=== PATIENT | female | born 1975 | race Caucasian/White ===

== ENCOUNTER 2023-02-05 08:04 | Emergency (ER) | payer BC, SELFPAY ==
[2023-02-05 08:05] VITALS: BP 126/81; TEMP 36.1; BMI 34.1
--- NOTE | 2023-02-05 08:24 | CT_ITS ---
STUDY: CT ABDOMEN AND PELVIS WITHOUT CONTRAST REASON FOR EXAM: Female, 48 years old. Right flank pain. Nausea. Difficulty with urination. RADIATION DOSAGE (If Supplied By Facility): CTDIvol = ( 15.94 ) mGy, DLP = ( 812.26 ) mGycm TECHNIQUE: Transaxial images were obtained from the dome of the diaphragm to the symphysis pubis without oral contrast, and without intravenous contrast. Sagittal and coronal images were reconstructed. Individualized dose optimization techniques were used for this CT. COMPARISON: None. FINDINGS: The visualized lung bases are unremarkable. The visualized portions of the heart are within normal limits. Normal liver. There are surgical clips in the gallbladder fossa consistent with a prior cholecystectomy. Normal spleen. Normal pancreas. Normal bilateral adrenal glands. Mild degree of right hydronephrosis and right hydroureter due to a 3.7 mm calculus at the right ureterovesical junction. Normal left kidney. Normal visualized stomach. Normal small intestine. Normal colon. The appendix is visualized and appears normal. Normal abdominal aorta. Normal inferior vena cava. Normal retroperitoneum. Normal urinary bladder. IUD is seen within the endometrium. Normal abdominal wall. There is a 1.1 cm x 0.9 cm well-defined rounded hypodensity in the posterior left side of the body of the L2 vertebrae. This may be a normal variant. CT/Abdomen/Pelvis without Cont IMPRESSION: 3.7 mm calculus at the right ureterovesical junction causing a mild degree of right hydronephrosis and hydroureter. IUD is seen within the endometrium. Electronically Signed: Roge Mario MD at 9:40 EDT ,
--- NOTE | 2023-02-05 08:25 | EX.ED.DYSGE1 ---
HPI History of Present Illness Chief Complaint: Flank Pain Informant: patient Onset/Context/Timing Onset: Today Context: Sudden Onset Timing: Continuous Quality: Sharp, cramping Location: Right lower abdomen and lower back Worsened by: Nothing Relieved by: Nothing Associated Symptoms Associated Symptoms: Nausea, vomiting, diarrhea Narrative Narrative: Patient presents with abdominal pain that began today. Patient states that began in the right lower quadrant and goes around to her right lower back. Patient describes it as sharp and cramping. Patient states it has been constant. Patient states nothing makes it better nothing makes it worse. Patient does admit to some nausea and vomiting today. Patient also admits to some loose diarrhea. Patient denies any dysuria or hematuria. Patient denies any frequency. Patient denies any prior history of kidney stones. Patient denies any hematemesis or coffee-ground emesis. Patient denies any melena or hematochezia. Prior similar symptoms: No PFSH PFSH Medical History (Updated 02/05/23 @ 10:[address] Bharat Armendariz DO) PCOS (polycystic ovarian syndrome) Medical History no medical history no medical history Home Medications oxycodone-acetaminophen 5 mg-325 mg tablet 1 - 2 tab PO Q4H PRN PRN Pain #30 tabs 04/04/16 [Rx Last Taken Unknown] ciprofloxacin HCl 500 mg tablet 500 mg PO BID #14 TABLETS 02/05/23 [Rx Last Taken Unknown] hydrocodone-acetaminophen 5-325mg 5mg-325mg 1 tab PO Q6H PRN PRN Pain 3 days #10 TABLETS 02/05/23 [Rx Last Taken Unknown] tamsulosin 0.4 mg capsule 0.4 mg PO DAILY #7 CAPSULES 02/05/23 [Rx Last Taken Unknown] Allergy/AdvReac Type Severity Reaction Status Date / Time Sulfa (Sulfonamide Allergy Rash Verified 02/05/23 08:08 Antibiotics) Surgical History no surgical history no surgical history Social History Smoking Status: Never smoker ROS ROS ED Constitutional Constitutional ED: Denies chills or fever(s) Eyes Eyes: Denies blurry vision or change in vision ENT ENT ED: Denies rhinorrhea or sore throat Cardiovascular Cardiovascular: Denies chest pain or palpitations Respiratory/Chest Respiratory/Chest: Denies cough or dyspnea Gastrointestinal Gastrointestinal: Reports abdominal pain, diarrhea, nausea and vomiting Genitourinary Genitourinary ED: Denies dysuria or hematuria Musculoskeletal Musculoskeletal: Reports back pain; Denies neck pain Integumentary Denies abscess or rash Neurologic Neurologic: Denies headache(s) or weakness Allergic/Immunologic Allergic/Immunologic ED: Denies mouth swelling or urticaria EXAM Physical Exam Const Vital Signs: 02/05/23 08:05 02/05/23 10:59 Temperature 97.0 F L Temperature Source Temporal Pulse Rate 89 Blood Pressure 126/81 H 119/76 Blood Pressure Mean 96 Oxygen Delivery Method Room Air Positive well nourished, well developed and obese General Appearance ED: well developed and NAD Nutritional Appearance: obese HEENT Reports moist mucous membranes Neck supple and no JVD Resp normal respiratory effort and clear to auscultation bilaterally Cardio regular rate, regular rhythm and no murmurs GI normal to inspection, nondistended, normoactive bowel sounds Palpation: soft and tender RLQ; Negative for guarding or rebound tenderness present Back/Spine no CVA tenderness Extremity normal to inspection General Extremety ED: Negative for edema or tenderness General Extremity: Negative for edema Neuro oriented x3, CN's II-XII intact bilaterally and no sensory deficits noted Sensorium / Orientation: alert Motor Exam: strength 5/5 throughout Psych mental status grossly normal Skin no rashes or lesions noted MDM MDM MDM Narrative Medical decision making narrative: Different but also includes ureteral calculus, pyelonephritis, appendicitis, gastroenteritis, mesenteric adenitis, ovarian cyst, ovarian torsion, and urinary tract infection. CBC will be obtained to assess for leukocytosis and anemia. Basic metabolic profile will be obtained to assess for electrolyte abnormality and renal function. Urinalysis will be obtained to assess for urinary tract infection and hematuria. CT scan of the abdomen pelvis will be obtained to assess for ureteral calculus, hydronephrosis, pyelonephritis, appendicitis, and ovarian cyst. Lab Data Attestation: I reviewed the patient's lab results. Lab results narrative: CBC was reviewed. There is a mild leukocytosis of 11.4. The remainder is within normal limits. Basic metabolic profile was reviewed. Chloride was slightly elevated at 112. BUN was 21 and creatinine was 1.06. The remainder was within normal limits. Urinalysis was reviewed. Occult blood was 250 with 5-10 red blood cells. Leukocyte esterase was 500 with 10-25 white blood cells. 5-10 epithelial cells and 1+ bacteria. Labs: Laboratory Results - last 24 hr 02/05/23 02/05/23 02/05/23 08:12 08:40 08:40 WBC 11.4 H RBC 4.38 Hgb 13.8 Hct 42.3 MCV 96.6 MCH 31.5 MCHC 32.6 RDW Std Deviation 49.4 H RDW Coeff of Crys 13.8 Plt Count 216 MPV 9.8 Immature Gran % (Auto) 0.400 Neut % (Auto) 87.5 H Lymph % (Auto) 8.2 L [place] % (Auto) 3.1 Eos % (Auto) 0.4 Baso % (Auto) 0.4 Absolute Neuts (auto) 10.0 H Absolute Lymphs (auto) 0.93 Nucleated RBC % 0 Sodium 141 Potassium 3.8 Chloride 112 H Carbon Dioxide 24.0 Anion Gap 5 BUN 21 H Creatinine 1.06 H Estim Creat Clear Calc 59.67 Est GFR (MDRD) Af Amer 72 Est GFR (MDRD) Non-Af 59 L BUN/Creatinine Ratio 19.8 Glucose 134 H Calcium 8.5 Urine Color Yellow Urine Clarity Sl. Cloudy Urine pH 6.0 Ur Specific [place] 1.020 Urine Protein 30 H Urine Glucose (UA) Normal Urine Ketones 5 H Urine Occult Blood 250 H Urine Nitrite Negative Urine Bilirubin 1 H Urine Urobilinogen 8 H Ur Leukocyte Esterase 500 H Urine RBC 5-10 SEEN Urine WBC 10-25 SEEN Ur Squamous Epith Cells 5-10 SEEN Urine Bacteria 1+ Urine Mucus 1+ Radiography Diagnostic Testing: Clinical Impression(s) from Imaging Studies Abdomen/Pelvis CT 02/05/23 08:24 IMPRESSION: 3.7 mm calculus at the right ureterovesical junction causing a mild degree of right hydronephrosis and hydroureter. IUD is seen within the endometrium. Electronically Signed: Roge Mario MD at 9:40 EDT , CT scan of the abdomen and pelvis was obtained. There is a 3.7 mm calculus at the right ureterovesicular junction with mild right hydronephrosis and hydroureter. This was interpreted by the radiologist and was also independently reviewed by myself. Treatment and Re-Evaluation :: Patient was given IV fluids, morphine, and Zofran. Patient was still having some discomfort on reevaluation. Patient was given a dose of Rocephin here. Patient was given a dose of Toradol here. Patient was advised of her findings. Patient was given a prescription for Cipro. Patient was also given a prescription for [place]. Patient was instructed to drink plenty of fluids. Case was discussed with Dr. Gisella Garcia, urology on-call. She agrees with outpatient treatment. She also recommended adding Flomax. Patient was instructed to follow-up with her this week. Patient understood and was agreeable with the plan. All questions were answered. Discharge Plan Triage Chief Complaint: Flank Pain ED Provider: Bharat Armendariz Dx/Rx/DC Orders Clinical Impression: Right distal ureteral calculus, Urinary tract infection Instructions: ED Cystitis Female Adult, ED Kidney Stone w/ Colic Prescriptions: New hydrocodone-acetaminophen [hydrocodone-acetaminophen] 5-325 mg tablet 1 tab PO Q6H PRN PRN (Reason: Pain) 3 Days Qty: 10 0RF ciprofloxacin HCl [ciprofloxacin HCl] 500 mg tablet 500 mg PO BID Qty: 14 0RF tamsulosin [tamsulosin] 0.4 mg capsule 0.4 mg PO DAILY Qty: 7 0RF No Action oxycodone-acetaminophen 1 TABLET tablet 1 - 2 tab PO Q4H PRN PRN (Reason: Pain) Qty: 30 0RF Primary Care Provider: Heriberto Rios Referrals: Gisella Garcia MD [Med Staff - Active Staff] - 3-5 Days Kashif Clark MD [Non-Staff] - Disposition Disposition: Home, Self Care Discharge Date/Time: 02/05/23 11:36
[2023-02-05 08:28] LABS: Color, Urine Yellow (Yellow); Glucose, Dipstick Normal (Normal); Ketone-Dipstick 5 mg/dl (Negative); Leukocyte Esterase-Dipstick 500 /ul (Negative); Nitrite-Dipstick Negative (Negative); Occult Blood-Urine 250 /ul (Negative); Protein-Dipstick 30 mg/dl (Negative); Urine Clarity Sl. Cloudy (Clear); Urine Urobilinogen 8 mg/dl (Normal)
[2023-02-05 08:30] LABS: Urine Bilirubin Dipstick 1 mg/dL (Negative)
[2023-02-05] MEDS: Ondansetron 4 MG/2 ML Vial IV (08:36)
[2023-02-05] MEDS: 0.9% Normal Saline 1,000 ML 1000 ML IV (08:36)
[2023-02-05] MEDS: Morphine 4 MG/ML Syringe IV (08:36)
[2023-02-05 08:42] LABS: Bacteria 1+ /hpf (None Seen); Mucous, Urine 1+ /hpf (<or=2+); Red Blood Cells-Urine 5-10 SEEN /hpf (0-5); Squamous Epithelial Cells - UA 5-10 SEEN /hpf (5-10); White Blood Cells 10-25 SEEN /hpf (0-5)
[2023-02-05 08:56] LABS: Absolute Lymphocyte Count 0.93 X10^3/uL (0.83-4.51); Basophil# 0.05 X10^3/uL; Basophil% 0.4 % (0-1); Eosinophil# 0.05 X10^3/uL; Eosinophils% 0.4 % (0-5); Hematocrit 42.3 % (37-47); Hemoglobin 13.8 g/dL (12.0-15.0); Lymphocyte # 0.93 X10^3/ul (0.83-4.51); Lymphocyte % 8.2 % (19-41); Mean Corp Hgb Conc 32.6 g/dL (32-36); Mean Corpuscular Hgb 31.5 pg (27.0-32.0); Mean Corpuscular Volume 96.6 fL (81-99); Mean Platelet Vol. 9.8 fl (6.2-12.0); Monocyte# 0.35 X10^3/uL; Monocyte% 3.1 % (0-10); NRBC Flagged by Analyzer 0 % (0-5); Neutrophil # 9.97 X10^3/uL (2.7-7.7); Neutrophil % 87.5 % (47-70); Platelet Count 216 K/mm3 (150-450); RBC Distribution Width CV 13.8 % (11.6-14.6); RBC Distribution Width SD 49.4 fl (35.1-43.9); Red Blood Count 4.38 M/mm3 (4.2-5.4); White Blood Count 11.4 K/mm3 (4.4-11.0)
[2023-02-05 09:10] LABS: Anion Gap 5 (5-15); BUN 21 mg/dL (7-18); BUN/Creat Ratio 19.8 RATIO (10-20); Calcium,Total 8.5 mg/dL (8.5-10.1); Chloride 112 mmol/L (98-107); Creatinine, Serum 1.06 mg/dL (0.55-1.02); EST Glomerular Filtration Rate 59 mL/min (>60); Est Glom Filt Rate - Afr Amer 72 mL/min (>60); Estimated Creatinine Clearance 59.67 ml/min; Glucose 134 mg/dL (74-106); Potassium 3.8 mmol/L (3.5-5.1); Sodium Level 141 mmol/L (136-145)
[2023-02-05] MEDS: Ketorolac 30 MG/ML Syringe IV (10:03)
[2023-02-05] MEDS: Ceftriaxone 1 GM/50 ML BAG IV (10:32)
[2023-02-05 10:59] VITALS: BP 119/76; PULSE 89
== END 2023-02-05 11:36 | disposition home or self-care (01) ==
PROVIDERS: Emergency Provider Emergency Medicine; PCP Family Medicine; Visit Provider Emergency Medicine
DX: N13.6 Pyonephrosis (principal); E66.9 Obesity, unspecified; E28.2 Polycystic ovarian syndrome
CPT/HCPCS: 74176; 80048; 81001; 85025; 87086; 87088; 96361; 96365; 96375; 99283; J7030; A4216; J2405